=== PATIENT | male | born 2000 | race Two or more races ===

== ENCOUNTER 2024-12-13 12:31 | Emergency (ER) | payer MEDICAID, SELFPAY ==
[2024-12-13 12:32] VITALS: BMI 32.5
[2024-12-13 13:14] VITALS: BP 167/91; PULSE 84; RESP 18; TEMP 36.4; O2SAT 96; BMI 34.8
--- NOTE | 2024-12-13 13:15 | XR_ITS ---
Examination: Hand, right 3 views Technique: Hand AP, oblique, lateral 3 views Date and time of exam: December 13, 2024 1321 hours INDICATIONS: Right hand pain at the base of the first digit post injury 2 days ago. FINDINGS: No acute fracture No dislocation No foreign body IMPRESSION: No acute fracture Consider follow-up coned views first digit including a true lateral view of the first digit as clinically warranted
--- NOTE | 2024-12-13 13:16 | PD.EDUPEX ---
Upper Extremity Injury RME/HPI General Chief Complaint: Extremity Injury, Upper Stated Complaint: Right thumb injury We night Time Seen by Provider: 12/13/24 12:52 Arrival date/time: 12/13/24 12:31 RME / HPI RME / HPI narrative: 24 years old male patient came in for evaluation regarding right thumb injury. Injury sustained about 2 days prior to ER visit while playing basketball, patient accidentally injured his right thumb resulting into bruising, tenderness, described as dull ache, severity moderate. Patient is worried because of bruising noted on the palmar aspect first metacarpal area. Denies any other injury. Related Data Previous Rx's ?Medication ?Instructions ?Recorded ibuprofen 800 mg tablet 800 mg PO TID PRN pain #30 tabs 12/13/24 Allergies Allergy/AdvReac Type Severity Reaction Status Date / Time NKA* Allergy Uncoded 08/16/16 14:50 Review of Systems Review of Systems Narrative Review of Systems: Review of system reviewed and within normal limits except mentioned in HPI ED Exam Narrative Physical exam: VITAL SIGNS: Reviewed. GENERAL APPEARANCE: Alert and interactive, follows commands, no acute distress, HEAD AND FACE: Non-traumatic. ENT: PERRL, pink conjunctivitis, eyelid no trauma, Mucous membrane moist. NECK: Supple, nontender, no nuchal rigidity. CHEST: No tenderness, no crepitus, no paradoxical movement, no retractions. LUNGS: Clear, well ventilated, symmetric, no rales, no wheezing, no ronchi, no stridor, good breath sounds bilaterally. HEART: Regular rate, regular rhythm, no murmur, no gallops. ABDOMEN: Soft, positive bowel sounds, nondistended, no guarding, nontender, no rebound, no masses, RECTAL: Deferred. GENITAL: Deferred. NEUROLOGICAL: Gross motor function intact sensory function intact, Appropriate for age. MUSCULOSKELETAL: low back nontender, full range of motion. EXTREMITIES: Right first metacarpal bruising swelling tenderness no deformity, no crepitus, no tenderness over the right snuffbox area, full range of motion. SKIN: Color pink, dry, no rash, no lacerations, no abrasions, no contusions. LYMPHATICS: Deferred. Course Quality Measures none Orders Category Date Time Status XR hand comp RT min 3V Stat Exams 12/13/24 13:15 Completed Ibuprofen Tab [Motrin Tab] Med 12/13/24 13:15 Discontinued 800 mg PO X1 ONE Vital Signs Vital signs: Vital Signs Temperature 97.5 F 12/13/24 13:14 Pulse Rate 84 12/13/24 13:14 Respiratory Rate 18 12/13/24 13:14 Blood Pressure 167/91 H 12/13/24 13:14 Pulse Oximetry (%) 96 12/13/24 13:14 Oxygen Delivery Method Room Air 12/13/24 13:14 Extremity Injury MDM Narrative MDM Narrative:: 24 years old male patient came in for evaluation regarding right thumb injury. Injury sustained about 2 days prior to ER visit while playing basketball, patient accidentally injured his right thumb resulting into bruising, tenderness, described as dull ache, severity moderate. Patient is worried because of bruising noted on the palmar aspect first metacarpal area. Denies any other injury. X-ray of the right thumb is negative for any acute pathology. Results discussed with the patient. Patient appears nontoxic and hemodynamically stable. Patient discharged home and instructed to follow-up with primary care provider in 24 to 48 hours. Instructed to return to the emergency department immediately if worsening of symptoms Patient data External records reviewed:: None Clinical information provided by:: patient Social determinants that could affect healthcare access:: none Patient has the following chronic illnesses:: None How is presenting disease/condition affected by chronic disease/condition?: no chronic disease Evaluation data The following diagnostics were reviewed and interpreted by me:: radiology exam(s) Lab and/or radiology exams considered but not ordered:: None Interpretation Summary: X-ray of thumb/hand is negative for any fracture dislocation Medications / Prescriptions Medications or Prescriptions considered but not ordered:: None Medication administrations:: Medication Administration History Discontinued Medications Ibuprofen (Ibuprofen Tab 400 Mg Tablet) 800 mg PO X1 ONE Stop: 12/13/24 13:16 Last Admin: 12/13/24 14:30 Dose: 800 mg Documented By: Motrin Consultations Consultation(s) initiated? (list below): No Diagnosis Upper Extremity Injury Differential Diagnosis: finger sprain and fracture of hand Most likely diagnosis given after review of the tests above:: Thumb sprain Admission Indicated Admission indicated?: not indicated Admission Request Was there a request for admission?: No Disposition Plan Disposition Plan: Discharge Discharge Attestation Discharge Attestation: The patient was given an opportunity to ask questions and understood the discharge instructions. Discharge instructions specifically effects, indications for sooner follow up or return to the emergency department, and the expected course of current diagnosis. Patient condition: Stable Discharge Plan Plan Patient Disposition: HOME (Self Care) Disposition Comment: stable Prescriptions/Referrals Prescriptions/Med Rec: New ibuprofen 800 mg tablet 800 mg PO TID PRN (Reason: pain) Qty: 30 0RF Problem List Clinical Impression: Sprain of thumb Patient/Caregiver Discharge Instructions Discharge Activity: activity as tolerated Education Materials: ED Finger Sprain Additional Instructions: Thank you for the opportunity for serving you today. You are stable for discharged . You are advised to: Follow-up with your PCP in 1 to 2 days Return to ED for worsening of symptoms Increase oral fluids Take medication as prescribed Print Language: [place] Stand Alone Forms: Marcela Award Info., Patient Portal Info Letter
[2024-12-13] MEDS: IBUPROFEN TAB 400 MG TABLET 800 MG PO (14:30)
== END 2024-12-13 17:04 | disposition home or self-care (01) ==
PROVIDERS: Emergency Provider Emergency Medicine
DX: S63.601A Unspecified sprain of right thumb, initial encounter (principal); X58.XXXA Exposure to other specified factors, initial encounter; Y93.67 Activity, basketball
CPT/HCPCS: 73130; 99283; A9270